=== PATIENT | male | born 1950 | race Caucasian/White ===

== ENCOUNTER 2017-08-18 12:48 | Emergency (ER) | payer BC ==
[2017-08-18 13:04] VITALS: BP 115/79
--- NOTE | 2017-08-18 13:25 | UC ---
Throat Pain/Nasal Adeel HPI - HPI Summary HPI Summary: THREE WEEKS AGO WAS TREATED FOR SINUS INFECTION WITH ANTIBIOTICS, SYMPTOMS BEGAN TO RETURN FOUR DAYS AGO. FACIAL PRESSURE, CONGESTION, POST NASAL DRIP. PRODUCTIVE COUGH. - History of Current Complaint Chief Complaint: UCRespiratory Stated Complaint: CONGESTION COUGH Time Seen by Provider: 08/18/17 13:12 Hx Obtained From: Patient Onset/Duration: Gradual Onset, Lasting Weeks Severity: Moderate Cough: Nonproductive Associated Signs & Symptoms: Positive: Hoarseness, Sinus Discomfort, Nasal Discharge - Epiglottits Risk Factors Epiglottis Risk Factors: Negative - Allergies/Home Medications Allergies/Adverse Reactions: Allergies Allergy/AdvReac Type Severity Reaction Status Date / Time No Known Allergies Allergy Verified 08/18/17 12:59 Home Medications: Home Medications Desloratidine (NF) [Clarinex (NF)] 5 mg PO DAILY 08/18/17 [History Confirmed 05/27] Ipratropium 0.5MG/2.5ML NEB* [Atrovent 0.5 MG NEB.BRONWYN*] 0.5 mg INH Q6H 08/18/17 [History Confirmed 08/18/17] Metoprolol Tartrate TAB* [Lopressor TAB*] 25 mg PO BID 08/18/17 [History Confirmed 08/18/17] Naproxen Sodium [Naproxen 550 mg] 550 mg PO BID 08/18/17 [History Confirmed 05/27] Omeprazole CAP* [Prilosec CAP* 20 MG] 40 mg PO DAILY 08/18/17 [History Confirmed 08/18/17] PMH/Surg Hx/FS Hx/Imm Hx Previously Healthy: Yes - Surgical History Surgical History: Yes Surgery Procedure, Year, and Place: Cholecystectomy, 2016, [place]; URINARY TRACT BLOCKAGE OPENED - Family History Known Family History: Negative: Respiratory Disease - Social History Lives: With Family Alcohol Use: None Substance Use Type: None Smoking Status (MU): Former Smoker Length of Time of Smoking/Using Tobacco: 3-4 Pipes a day for 42 Years When Did the Patient Quit Smoking/Using Tobacco: 2013 - Immunization History Most Recent Influenza Vaccination: May 2017 Most Recent Pneumonia Vaccination: May 2017 Review of Systems Constitutional: Fatigue Skin: Negative Eyes: Negative ENT: Nasal Discharge, Sinus Congestion, Sinus Pain/Tenderness Respiratory: Cough Cardiovascular: Negative Gastrointestinal: Negative Genitourinary: Negative Motor: Negative Neurovascular: Negative Musculoskeletal: Negative Neurological: Negative Psychological: Negative Is Patient Immunocompromised?: No All Other Systems Reviewed And Are Negative: Yes Physical Exam Triage Information Reviewed: Yes Appearance: No Pain Distress, Well-Nourished, Ill-Appearing Vital Signs: Initial Vital Signs Temp 97.8 F 08/18/17 12:55 Pulse 76 08/18/17 12:55 Resp 16 08/18/17 12:55 BP 115/79 08/18/17 12:55 Pulse Ox 98 08/18/17 12:55 Vital Signs Reviewed: Yes Eye Exam: Normal ENT: Positive: Nasal congestion, Nasal drainage, TM bulging, TM dull Dental Exam: Normal Neck exam: Normal Neck: Positive: Supple, Nontender, No Lymphadenopathy Respiratory Exam: Other - COUGH Respiratory: Positive: Chest non-tender, Lungs clear, Normal breath sounds, No respiratory distress, No accessory muscle use Cardiovascular Exam: Normal Cardiovascular: Positive: RRR, No Murmur, Pulses Normal Abdominal Exam: Normal Musculoskeletal Exam: Normal Musculoskeletal: Positive: Strength Intact, ROM Intact Neurological Exam: Normal Psychological Exam: Normal Skin Exam: Normal Throat Pain/Nasal Course/Dx - Differential Dx/Diagnosis Differential Diagnosis/HQI/PQRI: Pharyngitis, Sinusitis, Tonsillitis, URI Provider Diagnoses: SINUSITIS Discharge - Discharge Plan Condition: Stable Disposition: HOME Prescriptions: Amoxicillin/Clavulanate TAB* [Augmentin TAB 875*] 875 mg PO BID #20 tab Patient Education Materials: Sinusitis (ED) Referrals: Chayo Goldman MD [Primary Care Provider] -
== END 2017-08-18 13:24 | disposition home or self-care (01) ==
LOC: UCCORT 12:48
DX: J32.9 Chronic sinusitis, unspecified (principal); Z90.49 Acquired absence of other specified parts of digestive tract; Z87.891 Personal history of nicotine dependence
CPT/HCPCS: 99212; G0463

== ENCOUNTER 2017-10-20 09:25 | Emergency (ER) | payer BC ==
[2017-10-20 11:18] VITALS: BP 96/55
--- NOTE | 2017-10-20 11:21 | UC ---
Respiratory Complaint HPI - HPI Summary HPI Summary: Per caser up "pt states he has nasal congestion with post nasal drip thats been going on for the past 3 days. pt states he also has a cough with a scratchy throat. pt states he feels this is traveling into his chest. pt states he is prone to bronchitis. " - History of Current Complaint Pain Intensity: 0 <Marybeth Stinson - Last Filed: 10/20/17 11:21> - History of Current Complaint Onset/Duration: Lasting Days Severity Initially: Moderate Severity Currently: Moderate Character: Cough: Nonproductive Associated Signs And Symptoms: Positive: Chills, Nasal Congestion - Risk Factors Pulmonary Embolism Risk Factors: Negative Cardiac Risk Factors: Hypertension Pseudomonas Risk Factors: Negative <Ramila Torres - Last Filed: 10/20/17 12:09> - History of Current Complaint Chief Complaint: UCRespiratory Stated Complaint: COLD SYMPTOMS Time Seen by Provider: 10/20/17 11:19 - Allergies/Home Medications Allergies/Adverse Reactions: Allergies Allergy/AdvReac Type Severity Reaction Status Date / Time No Known Allergies Allergy Verified 10/20/17 11:18 PMH/Surg Hx/FS Hx/Imm Hx - Surgical History Surgical History: Yes Surgery Procedure, Year, and Place: Cholecystectomy, 2016, [place]; URINARY TRACT BLOCKAGE OPENED - Family History Known Family History: Negative: Respiratory Disease - Social History Alcohol Use: None Substance Use Type: None Smoking Status (MU): Former Smoker Length of Time of Smoking/Using Tobacco: 3-4 Pipes a day for 42 Years When Did the Patient Quit Smoking/Using Tobacco: 2013 - Immunization History Most Recent Influenza Vaccination: May 2017 Most Recent Pneumonia Vaccination: May 2017 <Marybeth Stinson - Last Filed: 10/20/17 11:21> Previously Healthy: Yes Cardiovascular History: Hypertension Respiratory History: Bronchitis GI/ History: Gastroesophageal Reflux - Family History Known Family History: Positive: Hypertension - Social History Occupation: Retired <Ramila Torres - Last Filed: 10/20/17 12:09> Review of Systems Constitutional: Chills Skin: Negative Eyes: Negative ENT: Sore Throat, Nasal Discharge, Sinus Congestion Respiratory: Cough - npc Cardiovascular: Negative Gastrointestinal: Negative Genitourinary: Negative Musculoskeletal: Negative Neurological: Negative Psychological: Negative Is Patient Immunocompromised?: No All Other Systems Reviewed And Are Negative: Yes <Ramila Torres - Last Filed: 10/20/17 12:09> Physical Exam Vital Signs: Initial Vital Signs Temp 97.3 F 10/20/17 11:13 Pulse 80 10/20/17 11:13 Resp 18 10/20/17 11:13 BP 96/55 10/20/17 11:13 Pulse Ox 98 10/20/17 11:13 <Marybeth Stinson - Last Filed: 10/20/17 11:21> Triage Information Reviewed: Yes Appearance: Ill-Appearing Vital Signs: Initial Vital Signs Temp 97.3 F 10/20/17 11:13 Pulse 80 10/20/17 11:13 Resp 18 10/20/17 11:13 BP 96/55 10/20/17 11:13 Pulse Ox 98 10/20/17 11:13 Vital Signs Reviewed: Yes ENT Exam: Normal ENT: Positive: Pharynx normal, TM bulging - bilaterally Respiratory Exam: Normal Cardiovascular Exam: Normal Abdominal Exam: Normal Neurological Exam: Normal Psychological Exam: Normal Skin Exam: Normal <Ramila Torres - Last Filed: 10/20/17 12:09> Diagnostic Evaluation - Laboratory O2 Sat by Pulse Oximetry: 98 <Marybeth Stinson - Last Filed: 10/20/17 11:21> Respiratory Course/Dx - Course Course Of Treatment: take abx as directed - discussed use and common side effects of med. increase fluid intake daily while on abx to prevent dehydration. f/u pcp 1 week or sooner if symptoms not resolving - Differential Dx/Diagnosis Differential Diagnosis/HQI/PQRI: Bronchitis, Laryngitis, Sinusitis Provider Diagnoses: sinusitis <Ramila Torres - Last Filed: 10/20/17 12:09> Discharge <Marybeth Stinson - Last Filed: 10/20/17 11:21> <Ramila Torres - Last Filed: 10/20/17 12:09> - Discharge Plan Condition: Good Disposition: HOME Prescriptions: Amoxicillin PO (*) [Amoxicillin 875 MG (*)] 875 mg PO BID 10 Days #20 tab Patient Education Materials: Sinusitis (ED) Referrals: Lurdes Miranda PA [Primary Care Provider] - 1 Week
== END 2017-10-20 12:14 | disposition home or self-care (01) ==
LOC: UCCORT 09:25
DX: J32.9 Chronic sinusitis, unspecified (principal); Z87.891 Personal history of nicotine dependence
CPT/HCPCS: 99211; G0463

== ENCOUNTER 2017-10-27 19:58 | Emergency (ER) | payer BC ==
[2017-10-27 20:55] VITALS: BP 116/69
--- NOTE | 2017-10-27 20:58 | UC ---
Respiratory Complaint HPI - HPI Summary HPI Summary: 67 y/o male presents to the urgent care c/o productive cough w/ green phlegm for the past 12 days. Pt reports he was seen here at the clinic on 10/20/2017 and Rx Amoxicillin for sinusitis. Symptoms improved w/ ABX . But for the past 3 days cough and nasal congestion has worsen associated w/ KEARNS, mild body aches. 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 He feels mild SOB at times. He used to be a heavy smoker. He has taking OTC cough medications w/o any improvement. Pt denies fever, chest pain, abdominal pain, dizziness, N/V/D - History of Current Complaint Chief Complaint: UCGeneralIllness Stated Complaint: COUGH/CONGESTION Time Seen by Provider: 10/27/17 20:56 Hx Obtained From: Patient Onset/Duration: Gradual Onset, Lasting Days - 12 days, Worse Since - 3 days ago Timing: Intermittent Episodes Severity Initially: Mild Severity Currently: Moderate Pain Intensity: 0 Pain Scale Used: 0-10 Numeric Character: Cough: Productive, Sputum Description: - green phlegm Aggravating Factors: Recumbent Position Alleviating Factors: OTC Meds Associated Signs And Symptoms: Positive: URI, Nasal Congestion, Sinus Discomfort. Negative: Fever, Chills - Risk Factors Pulmonary Embolism Risk Factors: Negative Cardiac Risk Factors: Hypertension, Elevated Lipids Pseudomonas Risk Factors: Negative Tuberculosis Risk Factors: Negative - Allergies/Home Medications Allergies/Adverse Reactions: Allergies Allergy/AdvReac Type Severity Reaction Status Date / Time No Known Allergies Allergy Verified 10/27/17 20:55 PMH/Surg Hx/FS Hx/Imm Hx Previously Healthy: Yes Endocrine History: Dyslipidemia Cardiovascular History: Hypertension - Surgical History Surgical History: Yes Surgery Procedure, Year, and Place: Cholecystectomy, 2016, [place]; URINARY TRACT BLOCKAGE OPENED - Family History Known Family History: Positive: Hypertension, Diabetes Negative: Respiratory Disease - Social History Occupation: Employed Full-time Lives: With Family Alcohol Use: None Substance Use Type: None Smoking Status (MU): Former Smoker Length of Time of Smoking/Using Tobacco: 3-4 Pipes a day for 42 Years When Did the Patient Quit Smoking/Using Tobacco: 2013 - Immunization History Most Recent Influenza Vaccination: May 2017 Most Recent Pneumonia Vaccination: May 2017 Review of Systems Constitutional: Negative Skin: Negative Eyes: Negative ENT: Nasal Discharge, Sinus Congestion, Sinus Pain/Tenderness Respiratory: Shortness Of Breath - at times, Cough Cardiovascular: Negative Gastrointestinal: Negative Genitourinary: Negative Motor: Negative Neurovascular: Negative Musculoskeletal: Negative Neurological: Negative Psychological: Negative Is Patient Immunocompromised?: No All Other Systems Reviewed And Are Negative: Yes Physical Exam Triage Information Reviewed: Yes Vital Signs: Initial Vital Signs Temp 97.1 F 10/27/17 20:51 Pulse 79 10/27/17 20:51 Resp 18 10/27/17 20:51 BP 116/69 10/27/17 20:51 Pulse Ox 95 10/27/17 20:51 - Additional Comments Vital Signs Reviewed: Yes General: well developed, well nourished male sitting in the examining table w/o any apparent respiratory distress Eyes: Positive: Conjunctiva Clear - PERRLA, EOMI, fundi grossly normal ENT: Positive: Normal ENT inspection, Hearing grossly normal, Pharynx normal, Nasal congestion - edematous and erythematous nasal mucosa, Nasal drainage - yellowish drainage, TMs normal. Negative: Tonsillar swelling, Tonsillar exudate Neck: Positive: Supple, Nontender, No Lymphadenopathy Respiratory: no orthopnea or dyspnea. Able to speak in full sentences, no retractions or accessory muscle use, no tripod position, stridor, or head bobbing. Positive breath sounds B/L bilaterally, mild scattered wheezing and rhonchi in B/L posterior lungs, no crackles or rales. Cardiovascular: Positive: RRR, No Murmur, Pulses Normal, Brisk Capillary Refill Abdomen Description: Positive: Nontender, No Organomegaly, Soft. Negative: CVA Tenderness (R), CVA Tenderness (L) Bowel Sounds: Positive: Present Musculoskeletal Exam: Normal Musculoskeletal: Positive: Strength Intact, ROM Intact, No Edema Neurological Exam: Normal Psychological Exam: Normal Skin Exam: Normal UC Diagnostic Evaluation - Laboratory O2 Sat by Pulse Oximetry: 95 Respiratory Course/Dx - Course Course Of Treatment: 67 y/o male presents to the urgent care c/o productive cough w/ green phlegm for the past 12 days. Pt reports he was seen here at the clinic on 10/20/2017 and Rx Amoxicillin for sinusitis. Symptoms improved w/ ABX . But for the past 3 days cough and nasal congestion has worsen associated w/ KEARNS , mild body aches. 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 He feels mild SOB at times. He used to be a heavy smoker. He has taking OTC cough medications w/o any improvement. Pt denies fever, chest pain, abdominal pain, dizziness, N/V/D. Pt w/ mild scattered wheezing and rhonchi in B/L posterior lungs, no crackles or rales. O2Sat:95%. Hx obtained. Rapid influenza A&B ordered : negative.Chest X-ray ordered to r/o pneumonia. Impression: No active Cardiopulmonary disease observed. Pt used to be a heavy smoker. Prednisone 60 mg PO ordered and Duneb treatment ordered. Pt tolerated well medications and her lungs improved. Pt states feeling better. Pt will be tx for Acute Bronchitis , Rx Doxycycline PO , Prednisone taper dose and Inhaler. First dose of antibiotic given at clinic tonight. PT Strongly advised to f/u with PCP for further management. He may be developing COPD. Pt understood and agreed with D/ C instructions and left the clinic hemodynamically stable. - Differential Dx/Diagnosis Differential Diagnosis/HQI/PQRI: Asthma, Bronchitis, Influenza, Lower Resp Infection, Sinusitis, Other - pneumonia Provider Diagnoses: 1- Acute bronchitis. 2-Wheezing. 3-Cough Discharge - Discharge Plan Condition: Stable Disposition: HOME Prescriptions: Albuterol HFA INHALER* [Ventolin HFA Inhaler*] 1 - 2 puff INH Q6H PRN #1 mdi PRN Reason: Cough Benzonatate CAP* [Tessalon 100 MG CAP*] 100 mg PO TID PRN #21 cap PRN Reason: Cough DOXYcycline CAP(*) [DOXYcycline 100MG CAP(*)] 100 mg PO BID #19 cap Patient Education Materials: Acute Bronchitis (ED), Wheezing (ED) Referrals: Lurdes Miranda PA [Primary Care Provider] - 3 Days Additional Instructions: 1-Please take full course of antibiotic to avoid resistance. 2-Take Tessalon PO tabs as directed and use the albuterol inhaler to alleviate cough. Increase fluid intake, rest and eat well. Do Duoneb Treatment TID x 3 days at home. 3- If symptoms do not improve or worsen or your develop SOB with fever and severe wheezing please go immediately to the ER further evaluation and treatment. 4- F/u with your PCP in 2-3 days for further management .
[2017-10-27] MEDS ORDERED: predniSONE TAB* 20 MG PO ONE (21:12)
[2017-10-27] MEDS ORDERED: Albuterol/Ipratropium NEB.SOL* Albuterol 2.5 MG/Ipratropium 0.5 MG 3 ML INH ONE (21:12)
--- NOTE | 2017-10-27 21:35 | RAD ---
HISTORY: Productive cough, shortness of breath COMPARISONS: November 07, 2016 VIEWS: 4: Frontal dual-energy and lateral views of the chest. FINDINGS: CARDIOMEDIASTINAL SILHOUETTE: The cardiomediastinal silhouette is normal. JENNIFER: The jennifer are normal. PLEURA: The costophrenic angles are sharp. No pleural abnormalities are noted. LUNG PARENCHYMA: The lungs are clear. ABDOMEN: The upper abdomen is clear. There is no subphrenic gas. BONES AND SOFT TISSUES: No bone or soft tissue abnormalities are noted. OTHER: None. IMPRESSION: NO ACTIVE CARDIOPULMONARY DISEASE.
[2017-10-27] MEDS ORDERED: DOXYcycline CAP(*) 100 MG PO ONE (21:41)
== END 2017-10-27 22:11 | disposition home or self-care (01) ==
LOC: UCCORT 19:58
DX: J20.9 Acute bronchitis, unspecified (principal); R06.2 Wheezing; R05 Cough; I10 Essential (primary) hypertension; Z87.891 Personal history of nicotine dependence
CPT/HCPCS: 71046; 87502; 99213; A9270-GY; G0463; J7512

== ENCOUNTER 2017-10-30 13:09 | Emergency (ER) | payer BC ==
[2017-10-30 13:38] VITALS: BP 120/75
[2017-10-30] MEDS ORDERED: Lidocaine 2% 10 ML* VIAL INJ ONE (14:22)
[2017-10-30] MEDS ORDERED: Lidocaine 2% PF * 5 ML VIAL ONE (14:24)
--- NOTE | 2017-11-06 07:16 | UC ---
Throat Pain/Nasal Adeel HPI - HPI Summary HPI Summary: 1.right side neck swelling and pain x 1 day, recent hx of Bronchitits on 10/28/17 , was placed on Doxy , started having swelling on the right side of his neck one day ago , no fever, no chills, 2. cyst on left side of his neck x few years , its been tender lately , wants to have it removed - History of Current Complaint Chief Complaint: UCRash Stated Complaint: FACIAL SWELLING Time Seen by Provider: 10/30/17 14:09 Hx Obtained From: Patient Onset/Duration: Gradual Onset, Lasting Days - 1, Still Present Severity: Moderate Pain Intensity: 0 Pain Scale Used: 0-10 Numeric Cough: Productive Associated Signs & Symptoms: Negative: Drooling, Wheezing, Hoarseness, Sinus Discomfort, Nasal Discharge, Fever, Rash - Allergies/Home Medications Allergies/Adverse Reactions: Allergies Allergy/AdvReac Type Severity Reaction Status Date / Time Penicillins Allergy Rash Verified 10/30/17 13:26 PMH/Surg Hx/FS Hx/Imm Hx Cardiovascular History: Hypertension Respiratory History: Asthma GI/ History: Gastroesophageal Reflux - Surgical History Surgical History: Yes Surgery Procedure, Year, and Place: Cholecystectomy, 2016, [place]; URINARY TRACT BLOCKAGE OPENED - Family History Known Family History: Positive: Hypertension, Diabetes Negative: Respiratory Disease - Social History Alcohol Use: None Substance Use Type: None Smoking Status (MU): Former Smoker Length of Time of Smoking/Using Tobacco: 3-4 Pipes a day for 42 Years When Did the Patient Quit Smoking/Using Tobacco: 2013 - Immunization History Most Recent Influenza Vaccination: May 2017 Most Recent Pneumonia Vaccination: May 2017 Review of Systems Constitutional: Negative Skin: Negative Eyes: Negative ENT: Nasal Discharge Respiratory: Cough Cardiovascular: Negative Gastrointestinal: Negative Is Patient Immunocompromised?: No All Other Systems Reviewed And Are Negative: Yes Physical Exam Triage Information Reviewed: Yes Appearance: Well-Appearing, No Pain Distress, Well-Nourished Vital Signs: Initial Vital Signs Temp 97.6 F 10/30/17 13:31 Pulse 77 10/30/17 13:31 Resp 18 10/30/17 13:31 BP 120/75 10/30/17 13:31 Pulse Ox 95 10/30/17 13:31 Vital Signs Reviewed: Yes Eyes: Positive: Conjunctiva Clear ENT: Positive: Normal ENT inspection, Hearing grossly normal, Pharynx normal, Nasal congestion, TMs normal Neck: Positive: Tenderness @, Enlarged Nodes @ - right side Respiratory: Positive: Chest non-tender, Lungs clear, Normal breath sounds, No respiratory distress Cardiovascular: Positive: RRR, No Murmur, Pulses Normal Abdominal Exam: Normal Abdomen Description: Positive: Nontender, Soft Skin: Positive: Other - 2 cm cystic lesion left side of neck , mild erythema, tender Procedures - Incision and Drainage Site: cyst left side of neck Anesthesia: Local - 2 % lidocane x 3 cc Instrument(s): Scalpel - # 11, Needle - # 25 Throat Pain/Nasal Course/Dx - Differential Dx/Diagnosis Provider Diagnoses: lymphadenopathy. sebaceous cyst neck Discharge - Discharge Plan Condition: Stable Disposition: HOME Patient Education Materials: Dermal Cyst Excision (DC), Lymphadenopathy (ED) Referrals: Lurdes Miranda PA [Primary Care Provider] - Additional Instructions: CONT. WITH NAPROXEN 2X PER DAY FOLLOW UP IN 5 TO 7 DAYS WITH YOUR PCP
== END 2017-10-30 14:43 | disposition home or self-care (01) ==
LOC: UCCORT 13:09
DX: L72.3 Sebaceous cyst (principal); R59.1 Generalized enlarged lymph nodes; I10 Essential (primary) hypertension; J45.909 Unspecified asthma, uncomplicated; K21.9 Gastro-esophageal reflux disease without esophagitis; Z88.0 Allergy status to penicillin; Z87.891 Personal history of nicotine dependence
CPT/HCPCS: 10060; 99212; G0463

== ENCOUNTER 2017-11-10 18:34 | Emergency (ER) | payer BC ==
[2017-11-10 19:15] VITALS: BP 128/91
[2017-11-10] MEDS ORDERED: predniSONE TAB* 20 MG PO ONE (19:46)
[2017-11-10] MEDS ORDERED: Albuterol 2.5 MG/3 ML NEB.SOL* (0.083%) INH ONE (19:46)
--- NOTE | 2017-11-10 19:53 | UC ---
General HPI - HPI Summary HPI Summary: PT IS C/O A COUGH WITH CHEST CONGESTION AND SINUS CONGESTION FOR ABOUT A MONTH. HE DENIES SOB, CP AND WHEEZING. PT ALSO DENIES FEVER. HE IS A FORMER SMOKER AND STATES "I PROBABLY HAVE SOME COPD". HE USES ATROVENT "WHICH HELPS" BUT HASN'T USED HIS ALBUTEROL. HE NOTES A RECENT CXR HERE WHICH WAS OK. - History of Current Complaint Chief Complaint: UCRespiratory Stated Complaint: COUGH/CONGESTION Time Seen by Provider: 11/10/17 19:39 Hx Obtained From: Patient Onset/Duration: Gradual Onset Timing: Constant Pain Intensity: 2 Associated Signs & Symptoms: Positive: Cough. Negative: Chest Pain, Diaphoresis , Fever, SOB, Wheezing - Allergy/Home Medications Allergies/Adverse Reactions: Allergies Allergy/AdvReac Type Severity Reaction Status Date / Time Penicillins Allergy Rash Verified 11/10/17 19:06 Home Medications: Home Medications Azelastine/Fluticasone PATRICIA(NF [Dymista(NF)] 1 spray DAILY 11/10/17 [History Confirmed 11/10/17] Naproxen TAB* [Naprosyn 250 mg TAB*] 500 mg DAILY 11/10/17 [History Confirmed ] PMH/Surg Hx/FS Hx/Imm Hx - Additional Past Medical History Additional PMH: Possible copd/asthma Cardiovascular History: Hypertension - Surgical History Surgical History: Yes Surgery Procedure, Year, and Place: Cholecystectomy, 2016, [place]; URINARY TRACT BLOCKAGE OPENED - Family History Known Family History: Positive: Hypertension, Diabetes Negative: Respiratory Disease - Social History Occupation: Employed Part-time Lives: With Family Alcohol Use: None Substance Use Type: None Smoking Status (MU): Former Smoker Length of Time of Smoking/Using Tobacco: 3-4 Pipes a day for 42 Years When Did the Patient Quit Smoking/Using Tobacco: 2013 - Immunization History Most Recent Influenza Vaccination: May 2017 Most Recent Pneumonia Vaccination: May 2017 Vaccination Up to Date: Yes Review of Systems Constitutional: Negative Skin: Negative Eyes: Negative ENT: Sinus Congestion Respiratory: Cough Cardiovascular: Negative Gastrointestinal: Negative Genitourinary: Negative Motor: Negative Neurovascular: Negative Musculoskeletal: Negative Neurological: Negative Psychological: Negative Is Patient Immunocompromised?: No All Other Systems Reviewed And Are Negative: Yes Physical Exam Triage Information Reviewed: Yes Appearance: Well-Appearing Vital Signs: Initial Vital Signs Temp 97 F 11/10/17 19:09 Pulse 86 11/10/17 19:09 Resp 24 11/10/17 19:09 BP 128/91 11/10/17 19:09 Pulse Ox 98 11/10/17 19:09 Vital Signs Reviewed: Yes Eyes: Positive: Conjunctiva Clear ENT: Positive: Pharynx normal, Nasal congestion, Nasal drainage - clear, TMs normal Neck: Positive: Supple, Nontender, No Lymphadenopathy Respiratory: Positive: Lungs clear, No respiratory distress, Decreased breath sounds, Other: - coarse junky cough Cardiovascular: Positive: No Murmur Abdomen Description: Positive: Nontender, No Organomegaly, Soft Bowel Sounds: Positive: Present Musculoskeletal: Positive: No Edema Neurological: Positive: Alert Psychological: Positive: Age Appropriate Behavior Skin Exam: Normal Re-Evaluation - Re-Evaluation First Eval Re-Evaluation Time: 20:26 Change: Improved - better aeration and pt notes easier to breathe. Course/Dx - Course Course Of Treatment: pt had cxr 10/27/17=review showed NAD. IMPROVED WITH TX HERE. WILL COVER WITH ANTIBIOTIC GIVEN HIS ? HX COPD ALONG WITH PREDNISONE AND HIS ALBUTEROL INHALER EVERY 6 HOURS. NEED FOR CLOSE F/U STRESSED. - Differential Dx - Multi-Symptom Provider Diagnoses: cough. bronchospasm. possible copd Discharge - Discharge Plan Condition: Stable Disposition: HOME Prescriptions: Azithromycin TAB* [Zithromax TAB (Z-MARLIN) 250 mg #6 tabs] 2 tab PO .TODAY, THEN 1 DAILY #1 marlin predniSONE TAB* [Deltasone TAB*] 40 mg PO DAILY 3 Days #6 tab Patient Education Materials: COPD (Chronic Obstructive Pulmonary Disease) (ED) , Bronchospasm (ED) Referrals: Lurdes Miranda PA [Primary Care Provider] - 5 Days Additional Instructions: STOP THE TESSALON PERLES. USE THE ALBUTEROL INHALER 2 PUFFS EVERY 6 HOURS.
== END 2017-11-10 20:44 | disposition home or self-care (01) ==
LOC: UCCORT 18:34
DX: R05 Cough (principal); J98.01 Acute bronchospasm; Z88.0 Allergy status to penicillin; F17.290 Nicotine dependence, other tobacco product, uncomplicated
CPT/HCPCS: 99212; G0463; J7512

== ENCOUNTER 2018-06-11 16:40 | Emergency (ER) | payer BC ==
--- OUTSIDE RECORDS SUMMARY | 2018-06-11 17:30 | XMS REPORT ---
:1950 External Reference #:[id number] Author Organization [facility] Address [address], [address] [place] [address] Phone [phone] Care Team Providers Name Role Phone Clare Miranda PA Care Team Information Home Visits Nurse Unavailable Clare Miranda PA Primary Care Physician Unavailable Payers Type Date Identification Numbers Payment Provider Subscriber Commercial Policy Number: [id number] Peng Owusu PayID: [id number] [place] [address] Medigap Part B Expires: 2017 Policy Number: [id number] Peng Owusu PayID: [id number] [place] [address] Problems Date Description Provider Status Onset: 05/27/2018 Urethral stricture Alexys Negrete M.D. Active Onset: 05/27/2018 Screening for malignant Alexys Negrete M.D. Active neoplasm of prostate Onset: 05/16/2018 Benign prostatic hypertrophy John Durán Active with outflow obstruction M.D. Onset: 05/16/2018 Diverticular disease of colon John Durán Active M.D. Onset: 05/16/2018 Other specified diseases of John Durán, Active anus and rectum M.D. Onset: 05/16/2018 Screening for malignant John Durán Active neoplasm of colon M.D. 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 Cigarette Use Former Cigarette Smoker Pipe Quit 2013 ETOH Use Never used alcohol Recreational Drug Use Never Used Drugs Daily Caffeine Consumes on average 2 cups of regular coffee per day Allergies, Adverse Reactions, Alerts Date Description Reaction Status Severity Comments 11/13/2016 Penicillin active hives 11/13/2016 Adhesives active hives Medications Medication Date Status Form Strength Qnty SIG Indications Ordering Provider Ciprofloxacin 05/27 Active Tablets 500mg 6tabs 1 by mouth Z12.5 Caden, twice a murray Reardon start M.DSnehal day before procedure Enema 05/27 Active Enema 7-19GM/11 133ml morning of Z12.5 Caden, 8ML procedure. Laila Reardon Benzonatate Active Capsules 100mg take 1 Unknown /0000 capsule by mouth 3 times per day as needed for cough. Lisinopril Active Tablets 10mg 1 by mouth Unknown /0000 every day Omeprazole Active Capsules DR 20mg 1 by mouth Unknown /0000 every day Desloratadine Active Tablets 5mg 1 tab by Unknown /0000 Dispers mouth every day as needed congestion Dymista Active Suspension 137-50mcg 1 spary to Unknown /0000 /Act both nostrils daily Naprosyn Active Tablets 500mg 1 tab by Unknown /0000 mouth twice a day pain Metoprolol Active Tablets 25mg 1 by mouth Unknown Tartrate /0000 twice a day Vitamin E Active Capsules once daily Unknown Complete /0000 Ipratropium Active Solution 0.02% DillIsamar, [place] / Cipro 04/11 Hx Tablets 500mg 20tab 1 by mouth Luis Armando, s twice a Christopher - murray Arndt M.D. 05/27 Cipro XR 04/10 Hx Tablets ER 500mg 20tab 1 po bid Luis Armando 24HR s John Arndt M.D. 04/11 Metronidazole 04/10 Hx Tablets 500mg 30tab 1 by mouth Luis Armando, s three Christopher - times a Laila Arndt Citrate Of 03/27 Hx Solution 1.745GM/3 296ml take day Z12.11 Luis Armando 0ML before the Christopher - colonoscop Laila Arndt 05/27 y Bisacodyl Ec 03/[address] 5mg 4tabs 4 tabs by Z12.11 Jaime mouth once Christopher - 630 Laila Arndt 05/27 evening /2017 before colonoscop y Aleve Hx Capsules 220mg 1 by mouth Unknown /0000 q12 hours - as needed 05/27 for pain Azelastine HCL Hx Solution 0.1% 1-2 sprays Unknown (Nasal) /0000 in both - nasal 11/30 as needed Atenolol Hx Tablets 25mg 1 by mouth Unknown /0000 every day - 11/30 Spiriva 00 Hx Aerosol 1.25mcg/A take 2 Unknown Respimat /0000 ct puffs once - daily. 03/27 Vital Signs Date Vital Result Comment 05/27/2018 BP Systolic 141 mmHg BP Diastolic 91 mmHg Body Temperature 98.0 F Heart Rate 71 /min Respiratory Rate 16 /min Height 70 inches 5'10" Weight 237.50 lb BMI (Body Mass Index) 34.1 kg/m2 BSA (Body Surface Area) 2.25 m2 [place] body weight in kilograms 75 O2 % BldC Oximetry 96 % Pain Level 0 03/27/2018 BP Systolic 144 mmHg BP Diastolic 91 mmHg Heart Rate 67 /min Respiratory Rate 18 /min Height 70 inches 5'10" Weight 243.00 lb BMI (Body Mass Index) 34.9 kg/m2 BSA (Body Surface Area) 2.27 m2 [place] body weight in kilograms 75 O2 % BldC Oximetry 95 % 11/30/2016 BP Systolic 112 mmHg BP Diastolic 80 mmHg Height 70 inches 5'10" Weight 227.00 lb BMI (Body Mass Index) 32.6 kg/m2 BSA (Body Surface Area) 2.20 m2 [place] body weight in kilograms 75 Results Test Date Test Result H/L Range Note Laboratory test finding 05/27/2018 Prostate Specific <pending> Antigen Urine Dipstick 05/27/2018 Ua Color yellow Yellow Ua Clarity clear Clear Ua Leuko neg Negative Ua Nitrite neg Negative Ua Urobilinogen 3.5 High 0.2 - 1.0 E.U./dL Ua Protein 0.15 High Negative Ua PH 6.0 Low 6.5-7.5 Ua Blood neg Negative Ua Specific [place] 1.015 1.010-1.030 Ua Ketones neg Low .15 Ua Bilirubin neg Negative Ua Glucose neg Negative Xray 11/17/2016 Fluoro/Guid,Local <pending> Need/Catheter Tip Laboratory test 11/11/2016 Lipase 113 U/L 73-393 1 finding Lipase SerPl-cCnc 11/11/2016 Lipase SerPl-cCnc 113 73-393 Neutrophils/leuk NFr 11/10/2016 Neutrophils/leuk NFr Bld 65.4 33.0-73.0 Bld Auto Auto Neutrophils # Bld 11/10/2016 Neutrophils # Bld Auto 4.08 1.8-7.0 Auto Monocytes/leuk NFr 11/10/2016 Monocytes/leuk NFr Bld 15.1 High 0.0-10.0 Bld Auto Auto Monocytes # Bld Auto 11/10/2016 Monocytes # Bld Auto 0.94 High 0.0-0.8 MCV RBC Auto 11/10/2016 MCV RBC Auto 92.7 80.0-96.0 MCHC RBC Auto-mCnc 11/10/2016 MCHC RBC Auto-mCnc 33.1 31.7-36.0 MCH RBC Qn Auto 11/10/2016 MCH RBC Qn Auto 30.7 27.0-33.0 Lymphocytes/leuk NFr 11/10/2016 Lymphocytes/leuk NFr Bld 17.6 Low 20.0- 42.0 Bld Auto Auto Lymphocytes # Bld 11/10/2016 Lymphocytes # Bld Auto 1.10 1.0-4.0 Auto Hgb Bld-mCnc 11/10/2016 Hgb Bld-mCnc 14.3 12.8-17.0 Hct VFr Bld Auto 11/10/2016 Hct VFr Bld Auto 43.2 38.0-48.0 PMV Bld Auto 11/10/2016 PMV Bld Auto 9.3 6.6-10.6 Platelet # Bld Auto 11/10/2016 Platelet # Bld Auto 174 150-400 Potassium SerPl-sCnc 11/10/2016 Potassium SerPl-sCnc 3.6 3.5-5.1 Prot SerPl-mCnc 11/10/2016 Prot SerPl-mCnc 6.7 6.4-8.2 Prothrombin time 11/10/2016 Prothrombin time 13.3 12.0-14.4 RBC # Bld Auto 11/10/2016 RBC # Bld Auto 4.66 4.20-5.80 RDW RBC Auto 11/10/2016 RDW RBC Auto 47.1 36-51 RDW RBC Auto-Rto 11/10/2016 RDW RBC Auto-Rto 14.1 11.6-15.8 Serum or plasma 11/10/2016 Serum or plasma direct 3.6 High 0.0-0.2 direct bilirubin bilirubin measurement measurement (mass (mass/volume) Sodium SerPl-sCnc 11/10/2016 Sodium SerPl-sCnc 141 136-145 WBC # Bld Auto 11/10/2016 WBC # Bld Auto 6.2 3.4-10.5 Glucose BldC 11/10/2016 Glucose [facility] Glucomtr-mCnc 107 70-110 Glucomtr-nc CBS W/Automated Diff 11/10/2016 White Blood Count 6.2 K/uL 3.4-10.5 1 Red Blood Count 4.66 M/uL 4.20-5.80 1 Hemoglobin 14.3 gm/dL 12.8-17.0 1 Hematocrit 43.2 % 38.0-48.0 1 Mean Cell Volume 92.7 fl 80.0-96.0 1 Mean Corpuscular HGB 30.7 pg 27.0-33.0 1 Mean Corpuscular HGB Conc 33.1 g/dL 31.7-36.0 1 Platelet Count 174 K/uL 150-400 1 Red Cell Distri Width SD 47.1 fl 36-51 1 Red Cell Distri Width %CV 14.1 % 11.6-15.8 1 Mean Platelet Volume 9.3 fL 6.6-10.6 1 Neut% 65.4 % 33.0-73.0 1 Lymph % 17.6 % Low 20.0-42.0 1 [place] % 15.1 % High 0.0-10.0 1 Eo% 1.6 % 0.0-6.6 1 Bas% 0.3 % 0.0-1.1 1 Neut# 4.08 K/uL 1.8-7.0 1 Lymph # 1.10 K/uL 1.0-4.0 1 [place] # 0.94 K/uL High 0.0-0.8 1 Eos # 0.10 K/uL 0.0-0.5 1 Baso # 0.02 K/uL 0.0-0.1 1 Protime 11/10/2016 Protime 13.3 seconds 12.0-14.4 1 Inr 1.0 0.9-1.1 1, 2 Liver Function Tests 11/10/2016 Total Protein 6.7 g/dL 6.4-8.2 1 Albumin 2.6 g/dL Low 3.4-5.0 1 Globulin 4.1 g/dL 1.9-4.3 1 Alb/Glob 0.6 ratio 1 Bilirubin,Total 4.8 mg/dL High 0.2-1.0 1 Bilirubin,Direct 3.6 mg/dL High 0.0-0.2 1 Bilirubin,Indirect 1.2 mg/dL High 0.0-0.9 1 Sgot/Ast 37 U/L 15-37 1 SGPT/Alt 86 U/L High 78 1 Alkaline Phosphatase 178 U/L High 45-117 1 Basic Metabolic Panel 11/10/2016 Glucose 114 mg/dL High 74-106 1 BUN 20 mg/dL High 7-18 1 Creatinine 0.8 mg/dL 0.6-1.3 1 Glom Filtration Rate, Estimate >60 mL/min >60 1 If >60 mL/min >60 1, 3 BUN/Creat 25.0 ratio 1 Sodium 141 mmol/L 136-145 1 Potassium 3.6 mmol/L 3.5-5.1 1 Chloride 105 mmol/L 98-107 1 Carbon Dioxide 26 mmol/L 21-32 1 Anion Gap 10 mEq/L 8-16 1 Calcium 8.5 mg/dL 8.5-10.1 1 Alp SerPl-cCnc 11/10/2016 Alp SerPl-cCnc 178 High 45-117 Alt SerPl-cCnc 11/10/2016 Alt SerPl-cCnc 86 High 12-78 Ast SerPl-cCnc 11/10/2016 Ast SerPl-cCnc 37 15-37 Albumin SerPl-mCnc 11/10/2016 Albumin SerPl-mCnc 2.6 3.4-5.0 Albumin/Glob SerPl 11/10/2016 Albumin/Glob SerPl 0.6 Anion Gap SerPl-sCnc 11/10/2016 Anion Gap SerPl-sCnc 10 8-16 BUN SerPl-mCnc 11/10/2016 BUN SerPl-mCnc 20 High 7-18 BUN/Creat SerPl 11/10/2016 BUN/Creat SerPl 25.0 Basophils # Bld Auto 11/10/2016 Basophils # Bld Auto 0.02 0.0-0.1 Basophils/leuk NFr Bld 11/10/2016 Basophils/leuk NFr Bld 0.3 0.0-1.1 Auto Auto Bilirub Indirect 11/10/2016 Bilirub Indirect 1.2 High 0.0-0.9 SerPl-mCnc SerPl-mCnc Bilirub SerPl-mCnc 11/10/2016 Bilirub SerPl-mCnc 4.8 High 0.2-1.0 Co2 SerPl-sCnc 11/10/2016 Co2 SerPl-sCnc 26 21-32 Calcium SerPl-mCnc 11/10/2016 Calcium SerPl-mCnc 8.5 8.5-10.1 Chloride SerPl-sCnc 11/10/2016 Chloride SerPl-sCnc 105 98-107 Creat SerPl-mCnc 11/10/2016 Creat SerPl-mCnc 0.8 0.6-1.3 Eosinophil # Bld Auto 11/10/2016 Eosinophil # Bld Auto 0.10 0.0-0.5 Eosinophil/leuk NFr 11/10/2016 Eosinophil/leuk NFr 1.6 0.0-6.6 Bld Auto Bld Auto Globulin Ser Calc-mCnc 11/10/2016 Globulin Ser Calc-mCnc 4.1 1.9-4.3 Glucose [mass/volume] 11/10/2016 Glucose [mass/volume] 114 High 74-106 in serum or plasma in serum or plasma * Miscellaneous 11/09/2016 * Miscellaneous Test(s) added studies (set) studies (set) Fibrin D-dimer Feu 11/09/2016 Fibrin D-dimer Feu 0.74 measurement in measurement in platelet poor pl platelet poor plasma (mass/volume) 1 CBD STONE 2 THERAPEUTIC INR RANGE: 2.0 - 3.0 DVT, Pulmonary embolus, prophylaxis against venous thrombosis or systemic embolization in high risk patients. 2.5 - 3.5 Mechanical heart valves 3 Note: Persistent reduction for 3 months or more in an eGFR <60 mL/min/1.73 m2 defines CKD. Patients with eGFR values >/=60 mL/min/1.73 m2 may also have CKD if evidence of persistent proteinuria is present. The original MDRD equation for estimated GFR is not valid for patients less than 18 years of age. Additional information may be found at www.kdo[facility].org. Procedures Date CPT Code Description Status 04/22/2018 56453 Colonoscopy Completed 11/14/2016 44060 Laparoscopy; cholecystectomy Completed Encounters Type Date Location Provider CPT E/M Dx Office Visit 05/27/2018 10:15a Urology Alexys Negrete M.D. 85658 Z12.5 N35.9 Office Visit 05/16/2018 11:45a Surgical Office John Durán 74295 Z12.11 Laila Arndt K62.89 K57.30 N40.1 Office Visit 03/27/2018 10:15a Surgical Office John Durán 73716 Z12.11 Laila Arndt R10.9 K59.00 Office Visit 11/27/2014 9:57a Cardiology Office Bi Wang, [address] 786.50 Laila, [facility] Plan of Care Future Appointment(s):06/10/2018 11:15 am - Alexys Negrete M.D. at [id number] - Alexys Negrete M.D.Z12.5 Encounter for screening for malignant neoplasm of prostateNew Medication:Ciprofloxacin HCL 500 mgEnema 7-19 GM/ 118MLComments:Patient with an abnormal BRANDON. We'll check a PSA today.I discussed with patient the reason for TRUS NBP. I discussed with him how I do it , I discussed the risk of sepsis and hospital admission to be at about 1-2% of patients who undergo a TRUS NBP. I told him he may have blood in stool,urine and semen for few days to few weeks. If the bleeding is significant he might need a procedure to stop the bleeding. I also discussed with him giving antibiotics on the day of the procedure in the form of IM injection as well as antibiotics that he will start the day prior to the procedure. Patient was also given written instructions. Pt is agreeable to proceed.N35.9 Urethral stricture , unspecifiedComments:Patient has a history of urethral stricture. He is not very symptomatic at this time and he has no evidence of urinary retention. We' ll check a uroflow at next visit
[2018-06-11 18:22] VITALS: BP 115/73
--- NOTE | 2018-06-11 18:29 | UC ---
Respiratory Complaint HPI - HPI Summary HPI Summary: 67 y/o male presents to the urgent care c/o chest congestion w/ productive cough , hoarseness and his chest hurts when he coughs for the past 6 days. He is producing a yellowish phlegm. Pt states PMHX of COPD and he has been using his inhaler since yesterday. He feels mild SOB at times. Pt denies fever, chills, chest pain, abdominal pain, N/V/D. - History of Current Complaint Chief Complaint: UCRespiratory Stated Complaint: COUGH, VOICE LOSS Time Seen by Provider: 06/11/18 18:13 Hx Obtained From: Patient Onset/Duration: Gradual Onset, Lasting Days - 6 days, Still Present, Worse Since - yesterday Timing: Intermittent Episodes Severity Initially: Mild Severity Currently: Mild Pain Intensity: 4 Pain Scale Used: 0-10 Numeric Character: Cough: Productive, Sputum Description: - yellowish Aggravating Factors: Recumbent Position Alleviating Factors: Bronchodilator Associated Signs And Symptoms: Positive: Wheezing - mild, URI, Nasal Congestion. Negative: Fever, Chills - Risk Factors Pulmonary Embolism Risk Factors: Negative Cardiac Risk Factors: Negative Pseudomonas Risk Factors: Negative Tuberculosis Risk Factors: Negative - Allergies/Home Medications Allergies/Adverse Reactions: Allergies Allergy/AdvReac Type Severity Reaction Status Date / Time adhesive tape Allergy Unknown Rash Verified 06/11/18 18:08 Penicillins Allergy Rash Verified 06/11/18 18:06 Home Medications: Home Medications Gemfibrozil TAB* [Lopid TAB*] 600 mg PO DAILY 06/11/18 [History Confirmed 06/11] PMH/Surg Hx/FS Hx/Imm Hx Previously Healthy: Yes Cardiovascular History: Hypertension Respiratory History: COPD, Bronchitis GI/ History: Gastroesophageal Reflux - Surgical History Surgical History: Yes Surgery Procedure, Year, and Place: Cholecystectomy, 2016, [place]; URINARY TRACT BLOCKAGE OPENED. COLONOSCOPY 2018 - Family History Known Family History: Positive: Hypertension, Diabetes Negative: Respiratory Disease - Social History Occupation: Retired Lives: With Family Alcohol Use: None Substance Use Type: None Smoking Status (MU): Former Smoker Length of Time of Smoking/Using Tobacco: 3-4 Pipes a day for 42 Years When Did the Patient Quit Smoking/Using Tobacco: 2013 - Immunization History Most Recent Influenza Vaccination: May 2017 Most Recent Pneumonia Vaccination: May 2017 Vaccination Up to Date: Yes Review of Systems Constitutional: Negative Skin: Negative Eyes: Negative ENT: Nasal Discharge, Sinus Congestion Respiratory: Shortness Of Breath - mild, Cough - productive, Other - wheezing and pleuritic chest pain Cardiovascular: Negative Gastrointestinal: Negative Genitourinary: Negative Motor: Negative Neurovascular: Negative Musculoskeletal: Negative Neurological: Negative Psychological: Negative Is Patient Immunocompromised?: No All Other Systems Reviewed And Are Negative: Yes Physical Exam - Summary Physical Exam Summary: Vital Signs Reviewed: Yes General: well developed, well nourished obese male sitting in the examining table w/o any apparent distress Eyes: Positive: Conjunctiva Clear - PERRLA, EOMI, fundi grossly normal ENT: Positive: Normal ENT inspection, Hearing grossly normal, Pharynx normal, Nasal congestion - edematous and erythematous nasal mucosa, Nasal drainage - yellowish drainage, TMs normal. Negative: Tonsillar swelling, Tonsillar exudate Neck: Positive: Supple, Nontender, No Lymphadenopathy Respiratory: no orthopnea or dyspnea. Able to speak in full sentences, no retractions or accessory muscle use, no tripod position, stridor, or head bobbing. Positive breath sounds bilaterally. mild scattered wheezing and rhonchi on b/L posterior lungs, no crackles or rales. Cardiovascular: Positive: RRR, No Murmur, Pulses Normal, Brisk Capillary Refill Abdomen Description: Positive: Nontender, No Organomegaly, Soft. Negative: CVA Tenderness (R), CVA Tenderness (L) Bowel Sounds: Positive: Present Musculoskeletal Exam: Normal Musculoskeletal: Positive: Strength Intact, ROM Intact, No Edema Neurological Exam: Normal Psychological Exam: Normal Skin Exam: Normal Triage Information Reviewed: Yes Vital Signs: Initial Vital Signs Temp 97.5 F 06/11/18 18:13 Pulse 78 06/11/18 18:13 Resp 16 06/11/18 18:13 BP 115/73 06/11/18 18:13 Pulse Ox 97 06/11/18 18:13 Diagnostic Evaluation - Laboratory O2 Sat by Pulse Oximetry: 97 Respiratory Course/Dx - Course Course Of Treatment: 67 y/o male presents to the urgent care c/o chest congestion w/ productive cough, hoarseness and his chest hurts when he coughs for the past 6 days. He is producing a yellowish phlegm. Pt states PMHX of COPD and he has been using his inhaler since yesterday. He feels mild SOB at times. Pt denies fever, chills, chest pain, abdominal pain, N/V/D. Hx obtained. Pt w/ mild scattered wheezing and rhonchi on b/L posterior lungs, no crackles or rales on examination. O2Sat: 97%. Pt is hemodynamically stable. Pt w/ PMHX COPD and heavy smoker in the past. Pt probably w/ a COPD exacerbation. Chest X- ray ordered: impression: No acute cardiopulmonary disease observed, Dr Garzon agreed w/ Chest X-ray interpretation. However no final report at this time by radiologist.. Pt given at the clinic Prednisone 60 mg PO and Duoneb treatment. Pt tolerated well medications and lungs improved. Pt states feeling better. Pt will be tx w/ Rx Doxycycline PO , Prednisone taper dose and Inhaler. Strongly advised to f/u with his PCP for further management. Pt advised he will be notified of final X-ray report tomorrow.D/C instructions explained. Pt understood and agreed with D/C instructions and left the clinic hemodynamically stable. - Differential Dx/Diagnosis Differential Diagnosis/HQI/PQRI: Asthma, Bronchitis, Exacerbation Of COPD, Lower Resp Infection, Sinusitis Provider Diagnoses: 1- COPD exacerbation due to bronchitis Discharge - Sign-Out/Discharge Documenting (check all that apply): Patient Departure - D/c home All imaging exams completed and their final reports reviewed: No - Discharge Plan Condition: Stable Disposition: HOME Prescriptions: Benzonatate CAP* [Tessalon 100 MG CAP*] 100 mg PO TID #21 cap DOXYcycline CAP(*) [DOXYcycline 100MG CAP(*)] 100 mg PO BID #19 cap predniSONE TAB* [Deltasone 20 MG TAB*] 20 mg PO DAILY #8 tab Patient Education Materials: Acute Bronchitis (ED), COPD (Chronic Obstructive Pulmonary Disease) (ED) Referrals: Lurdes Miranda PA [Primary Care Provider] - 3 Days Additional Instructions: 1-Please take full course of antibiotic to avoid resistance. First dose given tonight 2- Take Prednisone PO taper dose as directed starting tomorrow. First loading dose given today. 3-Continue using the Duoneb nebulizer treatment to alleviate SOB, and wheezing as directed . Increase fluid intake, rest and eat well. 4-Take Tessalon PO tabs as directed to alleviate cough. Increase fluid intake, rest and eat well. 5- If symptoms do not improve or worsen or your develop SOB with fever and severe wheezing please go immediately to the ER further evaluation and treatment. 4- F/u with your PCP in 3 days if not improvement symptoms for further management on your COPD - Billing Disposition and Condition Condition: STABLE Disposition: Home
[2018-06-11] MEDS ORDERED: Albuterol/Ipratropium NEB.SOL* Albuterol 2.5 MG/Ipratropium 0.5 MG 3 ML INH ONE (18:39)
[2018-06-11] MEDS ORDERED: predniSONE TAB* 20 MG PO ONE (18:40)
[2018-06-11] MEDS ORDERED: DOXYcycline CAP(*) 100 MG PO ONE (19:25)
--- NOTE | 2018-06-12 07:40 | RAD ---
INDICATION: Productive cough, chest congestion, shortness of breath, tobacco use. History of asthma. COMPARISON: October 27, 2017 TECHNIQUE: Dual energy PA and routine lateral views of the chest were obtained. REPORT: At the level of the LEFT fifth posterior intercostal space there is an ill-defined 1.3 cm nodular density which is new compared with the prior exam. The lungs and pleural spaces are otherwise clear. Negative for pneumothorax. Negative for cardiomegaly. Unremarkable central pulmonary vasculature. Mildly tortuous descending thoracic aorta. IMPRESSION: #. No compelling evidence for pneumonia. #. Chest CT with contrast suggested for further assessment of noted 1.3 cm nodular density at the LEFT upper lung zone. R2
--- NOTE | 2018-06-12 11:05 | ED ---
Progress - Progress Note Progress Note: cxr from 06/11/18 read as a nodule and recommended f/u ct Nursing contacted PMD who is working on arranging f/u with the patient for the node. Nursing also contacting the patient to inform of the need for ct imaging to f/u with chest nodule Course/Dx - Course Course Of Treatment: Pt w/ mild scattered wheezing and rhonchi on b/L posterior lungs, no crackles or rales on examination. O2Sat: 97%. Pt is hemodynamically stable. Discharge - Sign-Out/Discharge Documenting (check all that apply): Patient Departure All imaging exams completed and their final reports reviewed: Yes - Discharge Plan Condition: Stable Disposition: HOME Prescriptions: Benzonatate CAP* [Tessalon 100 MG CAP*] 100 mg PO TID #21 cap DOXYcycline CAP(*) [DOXYcycline 100MG CAP(*)] 100 mg PO BID #19 cap predniSONE TAB* [Deltasone 20 MG TAB*] 20 mg PO DAILY #8 tab Patient Education Materials: Acute Bronchitis (ED), COPD (Chronic Obstructive Pulmonary Disease) (ED) Referrals: Lurdes Miranda PA [Primary Care Provider] - 3 Days Additional Instructions: 1-Please take full course of antibiotic to avoid resistance. First dose given tonight 2- Take Prednisone PO taper dose as directed starting tomorrow. First loading dose given today. 3-Continue using the Duoneb nebulizer treatment to alleviate SOB, and wheezing as directed . Increase fluid intake, rest and eat well. 4-Take Tessalon PO tabs as directed to alleviate cough. Increase fluid intake, rest and eat well. 5- If symptoms do not improve or worsen or your develop SOB with fever and severe wheezing please go immediately to the ER further evaluation and treatment. 4- F/u with your PCP in 3 days if not improvement symptoms for further management on your COPD - Billing Disposition and Condition Condition: STABLE Disposition: Home
== END 2018-06-11 19:40 | disposition home or self-care (01) ==
LOC: UCCORT 16:40
DX: J44.1 Chronic obstructive pulmonary disease with (acute) exacerbation (principal); Z88.0 Allergy status to penicillin; I10 Essential (primary) hypertension; Z87.891 Personal history of nicotine dependence
CPT/HCPCS: 71046; 99213; A9270-GY; G0463; J7512

== ENCOUNTER 2018-10-02 18:14 | Emergency (ER) | payer BC, MEDICARE ==
[2018-10-02 18:54] VITALS: BP 124/62
--- NOTE | 2018-10-02 19:17 | UC ---
Truncal Trauma HPI - HPI Summary HPI Summary: pt c/o left side rib pain s/p falling on ice today from standing. - History Of Current Complaint Chief Complaint: UCTrauma Stated Complaint: S/P FALL (TODAY) LEFT SIDE RIB PAIN Time Seen by Provider: 10/02/18 19:09 Onset/Duration: Sudden Onset, Still Present Onset Of Pain: Immediate Severity Initially: Moderate Severity Currently: Moderate Pain Intensity: 5 Mechanism Of Injury: Fall From A Standing Position Aggravating Factor(s): Movement, Deep Breathing Alleviating factor(s): Rest Associated Signs And Symptoms: Positive: Negative - Allergies/Home Medications Allergies/Adverse Reactions: Allergies Allergy/AdvReac Type Severity Reaction Status Date / Time adhesive tape Allergy Unknown Rash Verified 10/02/18 18:54 Penicillins Allergy Rash Verified 10/02/18 18:54 PMH/Surg Hx/FS Hx/Imm Hx Previously Healthy: Yes Cardiovascular History: Hypertension - Surgical History Surgical History: Yes Surgery Procedure, Year, and Place: Cholecystectomy, 2016, [place]; URINARY TRACT BLOCKAGE OPENED. COLONOSCOPY 2017 - Family History Known Family History: Positive: Hypertension, Diabetes Negative: Respiratory Disease - Social History Occupation: Retired Lives: With Family Alcohol Use: None Substance Use Type: None Smoking Status (MU): Former Smoker Length of Time of Smoking/Using Tobacco: 3-4 Pipes a day for 42 Years When Did the Patient Quit Smoking/Using Tobacco: 2013 - Immunization History Most Recent Influenza Vaccination: May 2017 Most Recent Pneumonia Vaccination: May 2017 Hx Tetanus, Diphtheria Vaccination: No Vaccination Up to Date: Yes Review of Systems All Other Systems Reviewed And Are Negative: Yes Constitutional: Positive: Negative Skin: Positive: Negative Eyes: Positive: Negative Respiratory: Positive: Negative Cardiovascular: Positive: Negative Gastrointestinal: Positive: Negative Genitourinary: Positive: Negative Motor: Positive: Negative Neurovascular: Positive: Negative Musculoskeletal: Positive: Arthralgia, Myalgia Neurological: Positive: Negative Psychological: Positive: Negative Is Patient Immunocompromised?: No Physical Exam Triage Information Reviewed: Yes Appearance: Well-Appearing, Obese Vital Signs: Initial Vital Signs Temp 97.3 F 10/02/18 18:51 Pulse 80 10/02/18 18:51 Resp 16 10/02/18 18:51 BP 124/62 10/02/18 18:51 Pulse Ox 97 10/02/18 18:51 Vital Signs Reviewed: Yes Eye Exam: Normal ENT Exam: Normal Dental Exam: Normal Neck exam: Normal Respiratory Exam: Normal Respiratory: Positive: Normal breath sounds Cardiovascular Exam: Normal Musculoskeletal Exam: Normal Musculoskeletal: Positive: Other: - pain with palpation left lateral and anterior rib # 6-7 Neurological Exam: Normal Psychological Exam: Normal Skin Exam: Normal Diagnostics - Radiology No standard instances Radiology Interpretation Completed By: ED Physician - negative for fracture Truncal Trauma Course/Dx - Differential Dx/Diagnosis Differential Diagnosis/HQI/PQRI: Chest Wall Contusion, Rib Fracture Provider Diagnosis: Contusion of rib on left side Discharge - Sign-Out/Discharge Documenting (check all that apply): Patient Departure All imaging exams completed and their final reports reviewed: No - Discharge Plan Condition: Stable Disposition: HOME Patient Education Materials: Rib Contusion (ED) Referrals: Lurdes Miranda PA [Primary Care Provider] - If Needed - Billing Disposition and Condition Condition: STABLE Disposition: Home
--- NOTE | 2018-10-03 14:23 | UC ---
- Progress Note Progress Note: CXR and rib xray: No fracture or pneumothorax. No change in management. Course/Dx - Diagnoses Provider Diagnoses: Contusion of rib on left side Discharge - Sign-Out/Discharge Documenting (check all that apply): Post-Discharge Follow Up All imaging exams completed and their final reports reviewed: Yes - Discharge Plan Condition: Stable Disposition: HOME Patient Education Materials: Rib Contusion (ED) Forms: *Work Release Referrals: Lurdes Miranda PA [Primary Care Provider] - If Needed - Billing Disposition and Condition Condition: STABLE Disposition: Home
== END 2018-10-02 19:50 | disposition home or self-care (01) ==
LOC: UCCORT 18:14
DX: S20.212A Contusion of left front wall of thorax, initial encounter (principal); I10 Essential (primary) hypertension; Z88.0 Allergy status to penicillin; Z91.048 Other nonmedicinal substance allergy status; Z87.891 Personal history of nicotine dependence; W00.0XXA Fall on same level due to ice and snow, initial encounter; Y92.9 Unspecified place or not applicable
CPT/HCPCS: 99211; G0463